=== PATIENT | male | born 1990 | race Caucasian/White ===

== ENCOUNTER 2021-05-05 12:30 | Inpatient (IN) | payer MEDICAID ==
[~2021-05-05] VITALS: Ht 175.3 cm; Wt 63.5 kg
[2021-05-05] MEDS ORDERED: ACETAMINOPHEN 325MG TABLET PO ONE (13:15)
[2021-05-05] MEDS ORDERED: ACETAMINOPHEN 325MG TABLET PO NR (13:15)
[2021-05-05 13:33] LABS: BASOPHILS % 0.2 % (0.0-2.0); HEMOGLOBIN. 16.2 g/dL (14.0-18.0); LYMPHOCYTES % 8.2 % (20.0-50.0); MEAN CORPUSCULAR VOLUME 85.2 fL (80.0-94.0); MEAN PLATELET VOLUME 8.4 fl (7.4-10.4); MONOCYTES % 6.3 % (2.0-8.0); NEUTROPHILS % 85.3 % (40.0-76.0); PLATELET 105 x1000/uL (130-400); RED BLOOD CELL COUNT 5.39 mill/uL (4.7-6.1); RED CELL DISTRIBUTION WIDTH 12.4 % (11.6-14.6)
[2021-05-05 13:44] LABS: CHLORIDE 101 mEq/L (98-107)
[2021-05-05] MEDS ORDERED: LORAZEPAM 2MG/ML CPJ IV PRN (17:45)
[2021-05-05] MEDS ORDERED: MAGNESIUM/ALUMINUM HYDROXIDE/SIMETHICONE 30ML UDC PO PRN (17:45)
[2021-05-05] MEDS ORDERED: HYDRALAZINE 20MG/ML VIAL IV PRN (17:45)
[2021-05-05] MEDS ORDERED: CLONIDINE 0.1MG TABLET PO PRN (17:45)
[2021-05-05] MEDS ORDERED: ONDANSETRON HCL 4MG/2ML INJ IV PRN (17:45)
[2021-05-05] MEDS ORDERED: DIPHENHYDRAMINE 50MG/ML VIAL IV PRN (17:45)
[2021-05-05] MEDS ORDERED: MORPHINE SULFATE 2 MG/ML CPJ (NOT FOR IM USE) IV PRN (17:45)
[2021-05-05] MEDS ORDERED: GUAIFENESIN 200MG/10ML SUGAR FREE UDC PO PRN (17:45)
[2021-05-05] MEDS ORDERED: ACETAMINOPHEN 325MG TABLET PO PRN (17:45)
[2021-05-05] MEDS ORDERED: IPRATROPIUM/ALBUTEROL 0.5-3(2.5)MG/3ML NEB HHN PRN (17:45)
[2021-05-05] MEDS ORDERED: HYDROCODONE/ACETAMINOPHEN 5/325MG TABLET PO PRN (17:45)
[2021-05-05] MEDS ORDERED: ENOXAPARIN 40MG/0.4ML SYR SUBCUT SCH (18:30)
[2021-05-05] MEDS: ASPIRIN 81MG EC TABLET PO SCH (20:38)
[2021-05-05 21:30] VITALS: BP 132/91
[2021-05-05 22:00] VITALS: BP 132/91
[2021-05-05] MEDS: SODIUM CHLORIDE 0.9% INJ 3ML FLUSH IVF SCH (23:53)
[2021-05-06] VITALS: BP 114/80
[2021-05-06 04:00] VITALS: BP 114/78
[2021-05-06] MEDS: SODIUM CHLORIDE 0.9% INJ 3ML FLUSH IVF SCH ×3 (05:22→21:11)
[2021-05-06 06:58] LABS: BASOPHILS % 0.3 % (0.0-2.0); HEMATOCRIT. 46.8 % (42.0-52.0); HEMOGLOBIN. 16.2 g/dL (14.0-18.0); LYMPHOCYTES % 24.1 % (20.0-50.0); MEAN CORPUSCULAR VOLUME 86.8 fL (80.0-94.0); MEAN PLATELET VOLUME 8.7 fl (7.4-10.4); MONOCYTES % 9.1 % (2.0-8.0); NEUTROPHILS % 66.5 % (40.0-76.0); PLATELET 110 x1000/uL (130-400); RED BLOOD CELL COUNT 5.39 mill/uL (4.7-6.1); RED CELL DISTRIBUTION WIDTH 12.1 % (11.6-14.6)
[2021-05-06 07:06] LABS: CHLORIDE 101 mEq/L (98-107)
[2021-05-06 08:00] VITALS: BP 113/78
[2021-05-06] MEDS: ASPIRIN 81MG EC TABLET PO SCH (08:16)
[2021-05-06 12:00] VITALS: BP 107/75
[2021-05-06 16:00] VITALS: BP 117/85
[2021-05-06] MEDS: ENOXAPARIN 40MG/0.4ML SYR SUBCUT SCH (18:07)
[2021-05-06 20:00] VITALS: BP 110/75
[2021-05-06] MEDS ORDERED: NALOXONE HCL 0.4MG/ML VIAL IV PRN (22:45)
[2021-05-07] VITALS: BP 105/62
[2021-05-07 04:00] VITALS: BP 116/84
[2021-05-07] MEDS: SODIUM CHLORIDE 0.9% INJ 3ML FLUSH IVF SCH ×3 (05:22→21:17)
[2021-05-07 08:00] VITALS: BP 115/80
[2021-05-07] MEDS: ASPIRIN 81MG EC TABLET PO SCH (08:01)
[2021-05-07 12:00] VITALS: BP 105/74
[2021-05-07 16:00] VITALS: BP 109/78
[2021-05-07] MEDS: ENOXAPARIN 40MG/0.4ML SYR SUBCUT SCH (17:30)
[2021-05-07 20:31] VITALS: BP 112/75
[2021-05-08 00:32] VITALS: BP 109/69
[2021-05-08 04:00] VITALS: BP 102/69
[2021-05-08] MEDS: SODIUM CHLORIDE 0.9% INJ 3ML FLUSH IVF SCH ×3 (05:52→20:18)
[2021-05-08 08:05] VITALS: BP 113/80
[2021-05-08] MEDS: ASPIRIN 81MG EC TABLET PO SCH (08:26)
[2021-05-08 12:00] VITALS: BP 104/82
[2021-05-08 16:00] VITALS: BP 116/72
[2021-05-08] MEDS: ENOXAPARIN 40MG/0.4ML SYR SUBCUT SCH (17:32)
[2021-05-08 20:00] VITALS: BP 105/74
[2021-05-09] VITALS: BP 110/69
[2021-05-09 04:00] VITALS: BP 109/81
[2021-05-09] MEDS: SODIUM CHLORIDE 0.9% INJ 3ML FLUSH IVF SCH ×3 (05:26→21:29)
[2021-05-09 08:00] VITALS: BP 104/84
[2021-05-09] MEDS: DOCUSATE SODIUM 100MG CAPSULE PO PRN (09:03)
[2021-05-09] MEDS: ASPIRIN 81MG EC TABLET PO SCH (09:03)
[2021-05-09 12:00] VITALS: BP 11/64
[2021-05-09 16:00] VITALS: BP 112/66
[2021-05-09] MEDS: ENOXAPARIN 40MG/0.4ML SYR SUBCUT SCH (18:48)
[2021-05-09 20:00] VITALS: BP 114/74
[2021-05-10] VITALS: BP 96/64
[2021-05-10 04:00] VITALS: BP 100/69
[2021-05-10] MEDS: SODIUM CHLORIDE 0.9% INJ 3ML FLUSH IVF SCH ×3 (05:17→19:38)
[2021-05-10 08:00] VITALS: BP 102/62
[2021-05-10] MEDS: ASPIRIN 81MG EC TABLET PO SCH (08:59)
[2021-05-10] MEDS: DOCUSATE SODIUM 100MG CAPSULE PO PRN (08:59)
[2021-05-10 12:00] VITALS: BP_SYST 106; BP_SYST 122; BP_DIAS 68
[2021-05-10] MEDS: ENOXAPARIN 40MG/0.4ML SYR SUBCUT SCH (18:49)
[2021-05-10 20:00] VITALS: BP 102/70
[2021-05-11] VITALS: BP 108/68
[2021-05-11 04:00] VITALS: BP 98/68
[2021-05-11 07:47] LABS: BASOPHILS % 0.2 % (0.0-2.0); EOSINOPHILS % 2.4 % (0.0-5.0); HEMATOCRIT. 44.7 % (42.0-52.0); HEMOGLOBIN. 15.5 g/dL (14.0-18.0); LYMPHOCYTES % 11.7 % (20.0-50.0); MEAN CORPUSCULAR HEMOGLOBIN 29.8 pg (28.0-32.0); MEAN PLATELET VOLUME 7.7 fl (7.4-10.4); MONOCYTES % 10.5 % (2.0-8.0); NEUTROPHILS % 75.2 % (40.0-76.0); PLATELET 308 x1000/uL (130-400); RED BLOOD CELL COUNT 5.19 mill/uL (4.7-6.1); RED CELL DISTRIBUTION WIDTH 12.6 % (11.6-14.6)
[2021-05-11 08:00] VITALS: BP 115/79
[2021-05-11 08:09] LABS: CHLORIDE 102 mEq/L (98-107)
[2021-05-11] MEDS: ASPIRIN 81MG EC TABLET PO SCH (08:42)
[2021-05-11 12:00] VITALS: BP 112/74
[2021-05-11 14:54] VITALS: BP 112/74
[2021-05-11 16:00] VITALS: BP 116/83
== END 2021-05-11 16:10 | disposition home or self-care (01) | DRG 137 ==
LOC: ER 12:30 → EDBEDREQ 17:35 → EDBEDREQTM 17:35 → ENRESERV 20:26 → 7WST 21:11
PROVIDERS: ADMIT Internal Medicine; ATTEND Internal Medicine
DX: U07.1 COVID-19 (principal); I63.9 Cerebral infarction, unspecified; R74.01 Elevation of levels of liver transaminase levels; G83.14 Monoplegia of lower limb affecting left nondominant side; R26.81 Unsteadiness on feet; G51.0 Bell's palsy; Z74.01 Bed confinement status; H54.7 Unspecified visual loss; R05 Cough
CPT/HCPCS: 36415; 70551; 71045; 80048; 80053; 80061; 83880; 84443; 84484; 85025; 87426; 93005; 93880; 93970; 99285; A6261; J1650; U0003; U0005